=== PATIENT | male | born 1975 | race Caucasian/White ===

== ENCOUNTER → 2021-10-19 | Day surgery (SDC) | payer OTHER ==
[~2021-10-19] VITALS: Ht 170.2 cm; Wt 81.6 kg
[~2021-10-19] MED LIST: FENOFIBRATE200 MG PO; LOVAZA1 GM PO
== END | disposition home or self-care (01) ==
LOC: FAS 09:39
DX: Z12.11 Encounter for screening for malignant neoplasm of colon (principal); E78.00 Pure hypercholesterolemia, unspecified; Z86.010 Personal history of colon polyps; Z80.0 Family history of malignant neoplasm of digestive organs
CPT/HCPCS: J2704; J7120

== ENCOUNTER 2021-12-01 22:08 | Emergency (ER) | payer OTHER ==
[2021-12-02 00:27] LABS: BASOPHIL 0.2 % (0-2); EOSINOPHIL 0.6 % (0-5); HCT 41.1 % (42.0-52.0); HGB 14.5 g/dl (13.2-18.0); LYMPHOCYTE 5.5 % (15-48); MCHC 35.3 g/dL (32.0-36.0); MCV 87.8 fL (78.0-100.0); MONOCYTE 3.7 % (0-12); MPV 9.2 fL (6.0-9.5); NEUTROPHIL 89.4 % (41-80); NRBC 0; PLT 315 K/uL (150-400); RBC 4.68 M/uL (4.70-6.00); RDW 12.3 % (11.5-14.0); WBC 18.1 K/uL (4.0-10.5)
[2021-12-02 00:40] LABS: BILIRUBIN - TOTAL 0.4 mg/dL (0.2-1.0); BUN/CREAT RATIO (CALC) 12.5 RATIO; CREATININE 1.12 mg/dL (0.67-1.17); GLOBULIN (CALCULATION) 3.3 g/dL; POTASSIUM 3.3 mmol/L (3.5-5.1); TOTAL PROTEIN 7.3 g/dL (6.4-8.2)
[2021-12-02 00:56] LABS: BILIRUBIN NEGATIVE (NEGATIVE); BLOOD 3+ Ery/uL (NEGATIVE); CLARITY CLEAR (CLEAR); COLOR YELLOW (YELLOW); GLUCOSE (U) NORMAL (NORMAL); LEUKOCYTES NEGATIVE Leu/uL (NEGATIVE); NITRITE NEGATIVE (NEGATIVE); PROTEIN TRACE (LOW) mg/dL (NEGATIVE); SPECIFIC GRAVITY 1.025 (1.001-1.030); UROBILINOGEN 0.2 mg/dL (0.2-1.0)
[2021-12-02 00:59] LABS: URINARY RBC TNTC; URINARY WBC RARE
[2021-12-02 01:00] LABS: BACTERIA TRACE; CALCIUM OXALATE CRYSTALS MODERATE
[2021-12-02 01:29] LABS: LACTIC ACID 2.6 mmol/L (0.4-1.9)
== END 2021-12-02 02:52 | disposition home or self-care (01) ==
LOC: FER 22:08
PROVIDERS: Internal Medicine
DX: N13.0 Hydronephrosis with ureteropelvic junction obstruction (principal)
CPT/HCPCS: 36415; 80053; 81001; 83605; 84145; 85025; 87040; J7030